=== PATIENT | male | born 1995 | race Caucasian/White ===

== ENCOUNTER 2018-08-29 13:17 | Emergency (ER) | payer OTHER ==
[2018-08-29] MEDS ORDERED: Sodium Chloride 0.9% 10 ML Syringe FLUSH PRN (13:39)
[2018-08-29] MEDS ORDERED: Ondansetron 4 MG/2 ML SDV IVPUSH ONE (13:40)
--- NOTE | 2018-08-29 13:41 | EDM.PDOC ---
ED HPI GENERAL MEDICAL PROBLEM - General Chief Complaint: Cardiovascular Problem Stated Complaint: DIZZY/WEAK Time Seen by Provider: 08/29/18 13:21 Source of Information: Reports: Patient History Limitations: Reports: No Limitations - History of Present Illness INITIAL COMMENTS - FREE TEXT/NARRATIVE: The patient presents with dizziness and chest pain. He recently started a new job outside on working on the [employer]. The days are long and it is getting hotter. He started feeling this way on Sunday. He has generalized weakness, dizziness where he feels he may pass out and chest pain. He also has nausea and vomiting. He has some stomach cramps. He has been trying to drink enough fluids. He has no medical problems. His pulse did go up with standing. Onset: Gradual Duration: Day(s): Location: Reports: Chest, Abdomen Quality: Reports: Sharp Severity: Moderate Improves with: Reports: None Worsens with: Reports: None Associated Symptoms: Reports: Chest Pain, Nausea/Vomiting. Denies: Cough, Fever /Chills, Headaches, Shortness of Breath Chest Pain Score (Numeric/FACES): 4 - Related Data Allergies Allergy/AdvReac Type Severity Reaction Status Date / Time No Known Allergies Allergy Verified 08/29/18 13:27 Home Meds: Home Meds . [No Known Home Meds] 08/29/18 [History] Past Medical History - Past Health History Medical/Surgical History: Denies Medical/Surgical History Psychiatric History: Reports: None Social & Family History - Family History Family Medical History: Noncontributory - Tobacco Use Smoking Status *Q: Never Smoker ED ROS GENERAL - Review of Systems Review Of Systems: See Below Constitutional: Reports: Weakness. Denies: Fever, Chills HEENT: Reports: No Symptoms Respiratory: Reports: No Symptoms Cardiovascular: Reports: Chest Pain, Lightheadedness Endocrine: Reports: Fatigue GI/Abdominal: Reports: Abdominal Pain, Nausea, Vomiting. Denies: Diarrhea : Reports: No Symptoms Musculoskeletal: Reports: No Symptoms ED EXAM, GENERAL - Physical Exam Exam: See Below Exam Limited By: No Limitations General Appearance: Alert, No Apparent Distress Ears: Normal External Exam Nose: Normal Inspection Head: Atraumatic, Normocephalic Neck: Normal Inspection Respiratory/Chest: No Respiratory Distress, Lungs Clear, Normal Breath Sounds Cardiovascular: Regular Rate, Rhythm, No Edema, No Murmur GI/Abdominal: Soft, Non-Tender, No Organomegaly, No Mass Back Exam: Normal Inspection Extremities: Normal Inspection Neurological: Alert, Oriented, No Motor/Sensory Deficits EKG INTERPRETATION EKG Date: 08/29/18 Time: 13:46 Rhythm: NSR Rate (Beats/Min): 69 [place]: RAD-Right [place] Deviation P-Wave: Present QRS: Normal ST-T: Normal QT: Normal EKG Interpretation Comments: Anterior ST elevation normal early repol Course - Vital Signs Last Recorded V/S: Last Vital Signs Temp 98.4 F 08/29/18 13:28 Pulse 82 08/29/18 13:28 Resp 18 08/29/18 13:28 BP 128/70 08/29/18 13:28 Pulse Ox 100 08/29/18 13:28 Orthostatic Blood Pressure [ 129/81 Standing] Orthostatic Blood Pressure [ 128/70 Supine] - Orders/Labs/Meds Orders: Active Orders 24 hr Category Date Time Status Cardiac Monitoring [RC] . DIRECTED Care 08/29/18 13:39 Active EKG Documentation Completion [RC] STAT Care 08/29/18 13:40 Active Peripheral IV Care [RC] . DIRECTED Care 08/29/18 13:40 Active Sodium Chloride 0.9% [Normal Saline] 1,000 ml Med 08/29/18 13:45 Active IV .BOLUS Sodium Chloride 0.9% [Normal Saline] 1,000 ml Med 08/29/18 15:09 Active IV ONETIME Sodium Chloride 0.9% [Saline Flush] Med 08/29/18 13:39 Active 10 ml FLUSH ASDIRECTED PRN ED Antiemetic Medication Reflex [OM.PC] Stat Oth 08/29/18 13:39 Ordered Peripheral IV Insertion Adult [OM.PC] Stat Oth 08/29/18 13:39 Ordered Medication Orders Sodium Chloride (Normal Saline) 1,000 mls @ 1,000 mls/hr IV .BOLUS DAXA Last Admin: 08/29/18 13:47 Dose: 1,000 mls/hr Sodium Chloride (Normal Saline) 1,000 mls @ 1,000 mls/hr IV ONETIME ONE Stop: 08/29/18 16:08 Last Admin: 08/29/18 15:15 Dose: 1,000 mls/hr Sodium Chloride (Saline Flush) 10 ml FLUSH ASDIRECTED PRN PRN Reason: Keep Vein Open Last Admin: 08/29/18 13:48 Dose: 10 ml Labs: Laboratory Tests 08/29/18 08/29/18 Range/Units 13:40 13:40 WBC 8.34 (4.23-9.07) K/mm3 RBC 4.67 (4.63-6.08) M/mm3 Hgb 13.0 L (13.7-17.5) gm/L Hct 38.7 L (40.1-51.0) % MCV 82.9 (79.0-92.2) fl MCH 27.8 (25.7-32.2) pg MCHC 33.6 (32.2-35.5) g/dl RDW Std Deviation 34.2 L (35.1-43.9) fL Plt Count 216 (163-337) K/mm3 MPV 10.5 (9.4-12.3) fl Neut % (Auto) 57.8 (34.0-67.9) % Lymph % (Auto) 29.6 (21.8-53.1) % [place] % (Auto) 11.6 (5.3-12.2) % Eos % (Auto) 0.4 L (0.8-7.0) Baso % (Auto) 0.4 (0.1-1.2) % Neut # (Auto) 4.82 (1.78-5.38) K/mm3 Lymph # (Auto) 2.47 (1.32-3.57) K/mm3 [place] # (Auto) 0.97 H (0.30-0.82) K/mm3 Eos # (Auto) 0.03 L (0.04-0.54) K/mm3 Baso # (Auto) 0.03 (0.01-0.08) K/mm3 Manual Slide Review Normal smear Sodium 137 (136-145) mEq/L Potassium 3.2 L (3.5-5.1) mEq/L Chloride 102 (98-107) mEq/L Carbon Dioxide 19 L (21-32) mEq/L Anion Gap 19.2 H (5-15) BUN 27 H (7-18) mg/dL Creatinine 1.4 H (0.7-1.3) mg/dL Est Cr Clr Drug Dosing 95.58 mL/min Estimated GFR (MDRD) > 60 (>60) mL/min BUN/Creatinine Ratio 19.3 H (14-18) Glucose 119 H (74-106) mg/dL Calcium 9.7 (8.5-10.1) mg/dL Magnesium 2.0 (1.8-2.4) mg/dl Total Bilirubin 1.0 (0.2-1.0) mg/dL AST 65 H (15-37) U/L ALT 37 (16-63) U/L Alkaline Phosphatase 74 (46-116) U/L Troponin I < 0.017 (0.00-0.056) ng/mL Total Protein 7.4 (6.4-8.2) g/dl Albumin 4.7 (3.4-5.0) g/dl Globulin 2.7 gm/dL Albumin/Globulin Ratio 1.7 (1-2) Meds: Medications Generic Name Dose Route Start Last Admin Trade Name Freq PRN Reason Stop Dose Admin Sodium Chloride 1,000 mls @ 1,000 mls/hr 08/29/18 13:45 08/29/18 13:47 Normal Saline IV 1,000 mls/hr .BOLUS DAXA Administration Sodium Chloride 1,000 mls @ 1,000 mls/hr 08/29/18 15:09 08/29/18 15:15 Normal Saline IV 08/29/18 16:08 1,000 mls/hr ONETIME ONE Administration Sodium Chloride 10 ml 08/29/18 13:39 08/29/18 13:48 Saline Flush FLUSH 10 ml ASDIRECTED PRN Administration Keep Vein Open Discontinued Medications Generic Name Dose Route Start Last Admin Trade Name Freq PRN Reason Stop Dose Admin Ondansetron HCl 4 mg 08/29/18 13:40 08/29/18 13:47 Zofran IVPUSH 08/29/18 13:41 4 mg ONETIME ONE Administration - Re-Assessments/Exams Free Text/Narrative Re-Assessment/Exam: 08/29/18 14:37 I ordered an IV NS 1L bolus, EKG, labs and zofran. 08/29/18 15:24 His EKG shows a NSR with normal early repol. His CBC looks good. His K was low at 3.2. His anion gap was elevated at 19.2. His creatinine was elevated at 1.4. His GFR was normal >60. His glucose was elevated at 119. His AST was elevated at 65. His troponin was negative. I have ordered another liter of fluid. 08/29/18 15:55 He feels better. I will discharge him home. Departure - Departure Time of Disposition: 14:15 Disposition: Home, Self-Care 01 Condition: Good Clinical Impression: Dehydration Heat exhaustion Qualifiers: Encounter type: initial encounter Qualified Code(s): T67.5XXA - Heat exhaustion , unspecified, initial encounter Referrals: PCP,None [Primary Care Provider] - Alice Lewis PA-C [Physician Sample Examiner] - 1 Week Forms: ED Department Discharge Additional Instructions: Drink plenty of fluids. Try to drink at least 8 eight ounce glasses of water or power loree per day or until you urine is pale yellow. Please return if you are worse. - My Orders Last 24 Hours: My Active Orders 08/29/18 13:39 Cardiac Monitoring [RC] . DIRECTED Sodium Chloride 0.9% [Saline Flush] 10 ml FLUSH ASDIRECTED PRN ED Antiemetic Medication Reflex [OM.PC] Stat Peripheral IV Insertion Adult [OM.PC] Stat 08/29/18 13:40 EKG Documentation Completion [RC] STAT Peripheral IV Care [RC] . DIRECTED 08/29/18 13:45 Sodium Chloride 0.9% [Normal Saline] 1,000 ml IV .BOLUS 08/29/18 15:09 Sodium Chloride 0.9% [Normal Saline] 1,000 ml IV ONETIME - Assessment/Plan Last 24 Hours: My Active Orders 08/29/18 13:39 Cardiac Monitoring [RC] . DIRECTED Sodium Chloride 0.9% [Saline Flush] 10 ml FLUSH ASDIRECTED PRN ED Antiemetic Medication Reflex [OM.PC] Stat Peripheral IV Insertion Adult [OM.PC] Stat 08/29/18 13:40 EKG Documentation Completion [RC] STAT Peripheral IV Care [RC] . DIRECTED 08/29/18 13:45 Sodium Chloride 0.9% [Normal Saline] 1,000 ml IV .BOLUS 08/29/18 15:09 Sodium Chloride 0.9% [Normal Saline] 1,000 ml IV ONETIME
[2018-08-29] MEDS ORDERED: Sodium Chloride 0.9% 1,000 ML IV SCH (13:45)
[2018-08-29] MEDS ORDERED: Sodium Chloride 0.9% 1,000 ML IV ONE (15:09)
--- NOTE | 2018-08-29 15:19 | CR ---
Chest: Portable view of the chest was obtained. Comparison: No prior chest x-ray. Heart size and mediastinum are normal. Lungs are clear. Bony structures are grossly intact. Impression: 1. Nothing acute is seen on frontal chest x-ray. Diagnostic code #1
== END 2018-08-29 16:15 | disposition home or self-care (01) ==
LOC: JD.ED 13:17
DX: T67.5XXA Heat exhaustion, unspecified, initial encounter (principal)
CPT/HCPCS: 36415; 71045; 80053; 83735; 84484; 85025; 93005; 96361; 96374; 99284; J2405; J7040; 93010